=== PATIENT | female | born 1965 | race African-American/Black ===

== ENCOUNTER 2016-10-31 16:32 | Emergency (ER) | payer OTHER ==
[2016-10-31 16:42] VITALS: TEMP 98; BMI 52.7
[2016-10-31] MEDS ORDERED: IBUPROFEN 800 MG TAB PO ONE (17:16)
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
[2016-10-31 18:43] VITALS: BP 141/79; PULSE 82
== END 2016-10-31 18:41 | disposition home or self-care (01) ==
LOC: ED 16:32
DX: M54.2 Cervicalgia (principal); V49.40XA Driver injured in collision with unspecified motor vehicles in traffic accident, initial encounter; Y93.9 Activity, unspecified; Y92.410 Unspecified street and highway as the place of occurrence of the external cause
CPT/HCPCS: 72050; 72110; 99283; J3490